=== PATIENT | female | born 1995 | race African-American/Black ===

== ENCOUNTER 2019-05-09 15:08 | Emergency (ER) | payer MEDICAID ==
[~2019-05-09] VITALS: Ht 167.6 cm; Wt 65.8 kg
[2019-05-09 15:11] VITALS: BP_SYST 138
--- NOTE | 2019-05-09 15:17 | NUR ---
Patient to ER bed H1 to gown for evaluation. Side rails up. Report given to Mynor LAL.
--- NOTE | 2019-05-09 15:20 | NUR ---
Patient to ER via [facility] for medical clearance. Patient arrives ambulatory in no acut distress, in custody of [facility] in handcuffs. Patient is awake, alert and oriented in no acute distress, vital signs stable, respirations even and unlabored, skin warm and dry to touch. Patient able to ambulate without difficulty to Hall[address] with [facility] at her side. Awaiting evaluation by ER MD, will continue to observe and assess.
--- NOTE | 2019-05-09 15:30 | NUR ---
ER at bedside examining patient.
[2019-05-09 15:40] VITALS: BP_SYST 130
--- NOTE | 2019-05-09 15:40 | NUR ---
Patient given written and verbal discharge instructions and verbalizes understanding. ER MD discussed with patient the results and treatment provided. Patient in stable condition. ID arm band removed. No RX given. Patient educated on pain management and to follow up with PMD. Pain Scale 0. Opportunity for questions provided and answered. Medication side effect fact sheet provided. Patient left ER in no acute distress, able to ambulate without difficulty with slow, steady gait. Patient remains in custody of [facility], and left ER in handcuffs.
== END 2019-05-09 15:40 ==
LOC: SED 15:08
DX: Z02.89 Encounter for other administrative examinations (principal); Z86.2 Personal history of diseases of the blood and blood-forming organs and certain disorders involving the immune mechanism; Z88.4 Allergy status to anesthetic agent
CPT/HCPCS: 99283